=== PATIENT | female | born 1965 | race Caucasian/White ===

== ENCOUNTER → 2021-06-30 | Outpatient (CLI) | payer BC | LOC: MC.RAD 10:53 | DX: C50.411 Malignant neoplasm of upper-outer quadrant of right female breast (principal); R22.2 Localized swelling, mass and lump, trunk ==

== ENCOUNTER → 2021-07-08 | Outpatient (CLI) | payer BC | LOC: MC.RAD 12:08 | DX: C50.411 Malignant neoplasm of upper-outer quadrant of right female breast (principal); Z90.11 Acquired absence of right breast and nipple ==

== ENCOUNTER → 2024-04-27 | Outpatient (CLI) | payer BC | LOC: MC.RAD 08:17 | DX: Z12.31 Encounter for screening mammogram for malignant neoplasm of breast (principal); C50.411 Malignant neoplasm of upper-outer quadrant of right female breast ==